=== PATIENT | female | born 1990 | race Caucasian/White ===

== ENCOUNTER 2017-08-02 17:00 | Inpatient (IN) | payer BC, OTHER ==
[2017-08-02] MEDS ORDERED: Sodium Chloride 0.9% 10 ML Syringe FLUSH PRN (17:22)
[2017-08-02] MEDS ORDERED: Terbutaline 1 MG/ML SDV SUBCUT PRN (17:22)
[2017-08-02] MEDS ORDERED: Tranexamic Acid 1,000 MG in Sodium Chloride 0.9% 100 ML IV PRN (17:22)
[2017-08-02] MEDS ORDERED: Nalbuphine 10 MG/1 ML Vial IVPUSH PRN (17:22)
[2017-08-02] MEDS ORDERED: Water For Irrigation,Sterile 1,000 ML Container IRR PRN (17:22)
[2017-08-02] MEDS ORDERED: Sodium Chloride 0.9% 2.5 ML Syringe FLUSH PRN (17:22)
[2017-08-02] MEDS ORDERED: Lidocaine 1% 50 ML MDV INJECT PRN (17:22)
[2017-08-02] MEDS ORDERED: Carboprost Tromethamine 250 MCG/1 ML Amp IM PRN (17:22)
[2017-08-02] MEDS ORDERED: Misoprostol 200 MCG Tab PO PRN (17:22)
[2017-08-02] MEDS ORDERED: Methylergonovine 0.2 MG/1 ML Amp IM PRN (17:22)
[2017-08-02] MEDS ORDERED: Oxytocin/0.9 % Sodium Chloride 30 UNIT/500 ML BAG IV SCH (17:30)
[2017-08-02] MEDS: Misoprostol 25 MCG (1/4 of 100 MCG) Tab VAG PRN ×2 (18:51→23:04)
[2017-08-03] MEDS: Misoprostol 25 MCG (1/4 of 100 MCG) Tab VAG PRN ×2 (03:25→20:37)
[2017-08-03] MEDS: Lactated Ringers 1,000 ML IV SCH ×2 (08:18→17:38)
[2017-08-03] MEDS: Oxytocin/0.9 % Sodium Chloride 30 UNIT/500 ML BAG IV SCH (08:21)
[2017-08-04] MEDS: Misoprostol 25 MCG (1/4 of 100 MCG) Tab VAG PRN (01:00)
[2017-08-04] MEDS: Butorphanol 1 MG/ML SDV IVPUSH PRN ×2 (04:52→07:16)
[2017-08-04] MEDS: Oxytocin/0.9 % Sodium Chloride 30 UNIT/500 ML BAG IV SCH (05:14)
--- NOTE | 2017-08-04 07:36 | PCM.PREANE ---
Preanesthetic Assessment - Anesthesia/Transfusion/Family Hx Family History of Anesthesia Reaction: No - Review of Systems General: No Symptoms Pulmonary: No Symptoms Cardiovascular: No Symptoms Gastrointestinal: No Symptoms Neurological: No Symptoms - Physical Assessment NPO Status Date: 08/04/17 NPO Status Time: 00:01 Height: 1.57 m Weight: 86.183 kg ASA Class: 2 Mental Status: Alert & Oriented x3 Airway Class: Mallampati = 2 Dentition: Reports: Normal Dentition ROM/Head Extension: Full - Lab Values: Laboratory Last Values WBC 11.07 K/uL (4.0-11.0) H 08/02/17 18:08 RBC 4.19 M/uL (4.30-5.90) L 08/02/17 18:08 Hgb 12.6 g/dL (12.0-16.0) 08/02/17 18:08 Hct 36.6 % (36.0-46.0) 08/02/17 18:08 MCV 87.4 fL (80.0-98.0) 08/02/17 18:08 MCH 30.1 pg (27.0-32.0) 08/02/17 18:08 MCHC 34.4 g/dL (31.0-37.0) 08/02/17 18:08 RDW Std Deviation 42.7 fl (28.0-62.0) 08/02/17 18:08 RDW Coeff of Pearl 13 % (11.0-15.0) 08/02/17 18:08 Plt Count 195 K/uL (150-400) 08/02/17 18:08 MPV 11.40 fL (7.40-12.00) 08/02/17 18:08 Nucleated RBC % 0.0 /100WBC 08/02/17 18:08 Nucleated RBCs # 0 K/uL 08/02/17 18:08 POC Glucose 88 mg/dL (60-110) 08/04/17 04:23 Blood Type O POSITIVE 08/02/17 18:08 Antibody Screen NEGATIVE 08/02/17 18:08 - Allergies Allergies/Adverse Reactions: Allergies Allergy/AdvReac Type Severity Reaction Status Date / Time No Known Allergies Allergy Verified 08/02/17 17:16 - Acknowledgements Anesthesia Type Planned: Epidural Pt an Appropriate Candidate for the Planned Anesthesia: Yes Alternatives and Risks of Anesthesia Discussed w Pt/Guardian: Yes Pt/Guardian Understands and Agrees with Anesthesia Plan: Yes PreAnesthesia Questionnaire - Past Health History Medical/Surgical History: Denies Medical/Surgical History Endocrine/Metabolic History: Reports: Diabetes, Gestational - SUBSTANCE USE Smoking Status *Q: Never Smoker Second Hand Smoke Exposure: No Recreational Drug Use History: No - HOME MEDS Home Medications: Home Meds Insulin NPH Human Isophane [Novolin N] 10 units SUBCUT BEDTIME 08/02/17 [History ] Nitrofurantoin [place]/Macrocryst [Nitrofurantoin [place]-MCR] 100 mg PO BID 08/02/17 [History] PNV95/Ferrous Fumarate/FA [ Tablet] 1 tab PO DAILY 08/02/17 [History] - CURRENT (IN HOUSE) MEDS Current Meds: Current Medications Butorphanol Tartrate (Stadol) 1 mg IVPUSH Q1H PRN PRN Reason: Pain Last Admin: 08/04/17 04:52 Dose: 1 mg Carboprost Tromethamine (Hemabate Ds) 250 mcg IM ASDIRECTED PRN PRN Reason: Post Hemorrhage Lactated Ringer's (Ringers, Lactated) 1,000 mls @ 150 mls/hr IV ASDIRECTED KOLE Last Admin: 08/03/17 17:38 Dose: 150 mls/hr Oxytocin/Sodium Chloride (Oxytocin 30 Unit/500 Ml-Ns) 30 unit in 500 mls @ 999 mls/hr IV TITRATE KOLE Oxytocin/Sodium Chloride (Oxytocin 30 Unit/500 Ml-Ns) 30 unit in 500 mls @ 2 mls/hr IV TITRATE KOLE; Protocol Last Titration: 08/04/17 06:29 Dose: 8 munits/min, 8 mls/hr Tranexamic Acid 1,000 mg/ (Sodium Chloride) 110 mls @ 660 mls/hr IV ONETIME PRN PRN Reason: Bleeding Lidocaine HCl (Xylocaine 1%) 50 ml INJECT .ONCE PRN PRN Reason: Laceration repair Methylergonovine Maleate (Methergine) 0.2 mg IM ASDIRECTED PRN PRN Reason: Post Hemorrhage Misoprostol (Cytotec) 200 mcg PO .ONCE PRN PRN Reason: Post Hemorrhage Misoprostol (Cytotec) 25 mcg VAG Q4H PRN PRN Reason: Cervical Ripening Last Admin: 08/04/17 01:00 Dose: 25 mcg Nalbuphine HCl (Nubain) 10 mg IVPUSH Q1H PRN PRN Reason: Pain (severe 7-10) Sodium Chloride (Saline Flush) 10 ml FLUSH ASDIRECTED PRN PRN Reason: Keep Vein Open Sodium Chloride (Saline Flush) 2.5 ml FLUSH ASDIRECTED PRN PRN Reason: Keep Vein Open Sterile Water (Sterile Water For Irrigation) 1,000 ml IRR ASDIRECTED PRN PRN Reason: delivery Terbutaline Sulfate (Brethine) 0.25 mg SUBCUT ASDIRECTED PRN PRN Reason: Tacysystole Discontinued Medications Fentanyl/Bupivacaine HCl (Bhacvugo-Dnnjs-Bd 2 Mcg/Ml-0.125%) Confirm Administered Dose 100 mls @ as directed SUKUMAR [facility]ST[facility] ONE Stop: 08/04/17 07:15
[2017-08-04] MEDS: Lactated Ringers 1,000 ML IV SCH ×3 (07:38→19:33)
--- NOTE | 2017-08-04 07:40 | PCM.PRNOTE ---
- Free Text/Narrative Note: Anes Note Patient requests epidural for L&D. Risks and methods were discussed. Sitting Position. Sterile technique. Bet pre X 3 to lumbar area. Sterile drape applied. Level L3-L4, midline approach. Epidural space easily achieved single attempt with ease. Cath threaded 3 cm with ease. Sterile dressing applied. Test dose 3 cc 1.5 lido with epi negative. Load 10 cc pump solution in slow divided doses. Pump started at 8 cc hr with 6 cc q 20 min prn bolus. Patient reports excellent analgesia. Omid Hilton CRNA
[2017-08-04] MEDS ORDERED: Bupivacaine 0.5% 10 ML SDV ONE ×2 (14:25→19:58)
--- NOTE | 2017-08-04 14:50 | PCM.SN ---
- Free Text/Narrative Note: Called to assess patients pain. On exam of the insertion site I am unable to determine the depth of the catheter due to the medi-pore tape that is in place. I explained to the patient that I will attempt to bolus the epidural and if she does not get comfortable, that the catheter is most likely no longer in place. 0.5% Bupivacaine 10mL given over 10mins. Will re-assess in 30 minutes.
[2017-08-04] MEDS ORDERED: Acetaminophen 500 MG Tab PO ONE (18:23)
[2017-08-04] MEDS ORDERED: Acetaminophen 500 MG Tab ONE (18:34)
[2017-08-04] MEDS ORDERED: Ampicillin 2 GM AdvVial IV ONE (18:35)
[2017-08-04] MEDS ORDERED: Sodium Chloride 0.9% 100 ML ONE (18:48)
[2017-08-04] MEDS ORDERED: Oxytocin 10 Units/1 ML SDV ONE ×2 (20:25→21:02)
[2017-08-04] MEDS ORDERED: Ondansetron 4 MG/2 ML SDV ONE (20:25)
[2017-08-04] MEDS ORDERED: fentaNYL 100 MCG/2 ML SDV IVPUSH PRN (20:54)
[2017-08-04] MEDS ORDERED: Acetaminophen/oxyCODONE 325-5 MG Tab PO PRN ×3 (20:54→22:28)
[2017-08-04] MEDS ORDERED: Nalbuphine 10 MG/1 ML Vial IVPUSH PRN (20:54)
[2017-08-04] MEDS ORDERED: Carboprost Tromethamine 250 MCG/1 ML Amp ONE (21:01)
[2017-08-04] MEDS ORDERED: Morphine PF 1 MG/ML Amp ONE (21:05)
[2017-08-04] MEDS ORDERED: fentaNYL 100 MCG/2 ML SDV ONE ×2 (21:11→21:13)
[2017-08-04] MEDS ORDERED: Propofol 200 MG/20 ML SDV ONE (21:18)
--- NOTE | 2017-08-04 22:21 | PCM.POSTAN ---
POST ANESTHESIA ASSESSMENT - MENTAL STATUS Mental Status: Alert, Oriented - RESPIRATORY Respiratory Status: Respiratory Rate WNL, Airway Patent, O2 Saturation Stable - CARDIOVASCULAR CV Status: Pulse Rate WNL, Blood Pressure Stable - GASTROINTESTINAL GI Status: No Symptoms - POST OP HYDRATION Hydration Status: Adequate & Stable
[2017-08-04] MEDS ORDERED: Bisacodyl 10 MG Supp RECTAL PRN (22:28)
[2017-08-04] MEDS ORDERED: Ondansetron 4 MG/2 ML SDV IVPUSH PRN (22:28)
[2017-08-04] MEDS ORDERED: Lanolin 100% Cream 7 GM Tube TOP PRN (22:28)
[2017-08-04] MEDS ORDERED: diphenhydrAMINE 50 MG/ML SDV IVPUSH PRN (22:28)
[2017-08-04] MEDS ORDERED: Ketorolac 30 MG/ML SDV ONE (22:29)
[2017-08-04] MEDS: Ketorolac 30 MG/ML SDV IVPUSH SCH (22:30)
[2017-08-04] MEDS ORDERED: Lactated Ringers 1,000 ML IV SCH (22:30)
--- NOTE | 2017-08-04 22:42 | PCM.OPNOTE ---
- General Post-Op/Procedure Note Date of Surgery/Procedure: 08/04/17 Operative Procedure(s): Primary Lower transverse Cesearean section Findings: Live male delivered at 2050 , 8/9 , Weight : 3470g , Thick meconium noted , 3VC EBL : 900 Pre Op Diagnosis: 27 yo @ 39w , GDM2. Persistent Cat 2FHT. Chorioamnionitis Post-Op Diagnosis: None Anesthesia Technique: Epidural Primary Surgeon: Citlalli Le Secondary Surgeon: Demetris Gallegos Pathology: Placenta Fluid Replacement, Intraop: 2,000 Output, Urine Amount: 30 EBL in mLs: 900 Complications: None Condition: Good
[2017-08-04 23:21] LABS: CHLORIDE,CL 107 mmol/L (98-107); SODIUM,NA 139 mmol/L (136-145)
[2017-08-04] MEDS: Clindamycin Phosphate in D5W 900 MG in Premix Bag 1 BAG IV SCH ×2 (23:45)
[2017-08-05] MEDS: Ampicillin 2 GM in Sodium Chloride 0.9% 100 ML IV SCH ×5 (02:17→20:41)
[2017-08-05] MEDS: Ketorolac 30 MG/ML SDV IVPUSH SCH ×4 (04:31→22:50)
[2017-08-05] MEDS ORDERED: Ampicillin 2 GM in Sodium Chloride 0.9% 100 ML IV SCH (07:41)
--- NOTE | 2017-08-05 07:45 | OR ---
SURGEON: ELICEO BARNARD PREOPERATIVE DIAGNOSES: 1. A 27-year-old G1, P0, 39 weeks and 1 day, undergoing induction of labor for gestational diabetes on insulin. 2. Category 2 heart tracing. 3. Chorioamnionitis. 4. Gestational hypertension. POSTOPERATIVE DIAGNOSES: 1. A 27-year-old G1, P0, 39 weeks and 1 day, undergoing induction of labor for gestational diabetes on insulin. 2. Category 2 heart tracing. 3. Chorioamnionitis. 4. Gestational hypertension. PROCEDURE: Primary low transverse section. ESTIMATED BLOOD LOSS: 900. IV FLUID: 2000. URINE OUTPUT: 30. FINDING: A live male delivered at 2016 hours. scores was 8 and 9. Weight was 3470 g. Thick meconium noted. Three-vessel cord also noted. BRIEF HISTORY: The patient is a 27-year-old G1, P0, at 39 weeks and 1 day, was undergoing induction of labor since two days ago. The patient received 3 doses of Cytotec, had minimal cervical change, was given opportunity to rest and Pitocin was started, was given about 2 hours and there was no significant change. Pitocin was discontinued and Cytotec was given X 2 doses , after which Pitocin was restarted. At this point,she made change to 2cm. AROM was performed and Pitocin was titrated . Eventually, the patient became 6 cm. IUPC was placed. The patient during the labor course was noted to have recurrent late decelerations. She was placed in left lateral position. Oxygen was given. Bolus was given. heart tracing was in and out of Cat 2FHT. Tracing reverts to cat 2 when pitocin is increased. . The patient also had episodes of prolonged heart deceleration. Due to recurrent late decelerations which was not responding to resuscitative measures, the patient was counseled for , at this time, she was 8, 60, 0. She also was 8 cm for about 2 hours. The patient had chorioamnionitis with temperature of 103.0. The patient was then given IV antibiotics, ampicillin and gentamicin. PROCEDURE IN DETAIL: The patient was taken to the operating room, where the epidural anesthesia was topped up. The patient was placed in dorsal supine position with leftward tilt. A Pfannenstiel skin incision was made with a scalpel and carried down to the fascia with the Bovie. The fascia was incised and extended laterally. The Jordi clamp was used to grasp the superior fascia, which was dissected of the rectus muscle. Same was done to the inferior fascia, which was dissected of the rectus muscle. The rectus muscle was in the midline down to the level of the pubic symphysis. The abdomen was entered in bluntly to expose the bladder reflection. The Matthew O retractor was placed in and it was ensured that there was no bowel entrapment. Then, the lower uterine segment was visualized. The bladder flap was created. Then a uterine incision was made which was extended upward laterally manually. The fetus was found in cephalic position was brought to the level of the incision. Then fundal pressure was applied. The was delivered and handed over to the awaiting clinical nursing coordinator. Cord gases were obtained. The placenta was delivered via controlled cord traction. The uterus was cleaned with moist laparotomy sponges. The uterus was closed in 2 layers one with 0 Vicryl, second one with 0 Monocryl with imbricating layer. Hemostasis was noted. The gutters were cleaned. The peritoneal was sutured and the rectus muscle was sutured with mattress sutures. The fascia was also closed with 0 Vicryl. Then the Subcutaneous fat was closed. The skin was closed with 4-0 Monocryl on a Lusi needle. Hemostasis was noted after the procedure. All instrument and pad count were correct x2. JUAN WILHELM /[id number] DARNELL
[2017-08-05] MEDS: Clindamycin Phosphate in D5W 900 MG in Premix Bag 1 BAG IV SCH ×6 (07:48→22:55)
--- NOTE | 2017-08-05 08:28 | PCM.PNPP ---
<Fidelia Esqueda - Last Filed: 08/05/17 08:35> - General Info Date of Service: 08/05/17 Admission Dx/Problem (Free Text): 39/1 IOL for GDM on insulin, category 2 FHT, chorioamnionitis, and gestational HTN that went to . Subjective Update: Patient is doing well this morning. . Lochia - WNL. Pain is tolerable with medications. Tolerating food with no n/v. Guzman catheter in place. No bowel movement since surgery. SCD's are on. Will be given an ICS. Anticipate discharge tomorrow. Functional Status: Reports: Pain Controlled, Tolerating Diet. Denies: Ambulating, Urinating - Review of Systems General: Denies: Fever, Chills HEENT: Denies: Headaches Pulmonary: Denies: Shortness of Breath, Pleuritic Chest Pain Cardiovascular: Denies: Chest Pain, Palpitations, Lightheadedness Gastrointestinal: Denies: Abdominal Pain, Nausea, Vomiting - General Info Date of Service: 08/05/17 - Patient Data Vital Signs - Most Recent: Last Vital Signs Temp 36.3 C 08/05/17 07:33 Pulse 90 08/05/17 07:33 Resp 20 08/05/17 07:33 BP 131/70 08/05/17 07:33 Pulse Ox 97 08/05/17 07:33 Weight - Most Recent: 86.183 kg I&O - Last 24 Hours: Intake & Output 08/04/17 08/05/17 08/05/17 22:59 06:59 14:59 Intake Total 4400 Output Total 350 Balance 4050 Lab Results - Last 24 Hours: Laboratory Results - last 24 hr 08/04/17 08/04/17 08/04/17 Range/Units 11:45 16:21 17:55 WBC (4.0-11.0) K/uL RBC (4.30-5.90) M/uL Hgb (12.0-16.0) g/dL Hct (36.0-46.0) % MCV (80.0-98.0) fL MCH (27.0-32.0) pg MCHC (31.0-37.0) g/dL RDW Std Deviation (28.0-62.0) fl RDW Coeff of Pearl (11.0-15.0) % Plt Count (150-400) K/uL MPV (7.40-12.00) fL Neut % (Auto) (48.0-80.0) % Lymph % (Auto) (16.0-40.0) % [place] % (Auto) (0.0-15.0) % Eos % (Auto) (0.0-7.0) % Baso % (Auto) (0.0-1.5) % Neut # (Auto) (1.4-5.7) K/uL Lymph # (Auto) (0.6-2.4) K/uL [place] # (Auto) (0.0-0.8) K/uL Eos # (Auto) (0.0-0.7) K/uL Baso # (Auto) (0.0-0.1) K/uL Nucleated RBC % /100WBC Nucleated RBCs # K/uL Cord ABG Base Excess Cord VBG pH (7.25-7.45) Cord VBG Base Excess (-10--2) Sodium (136-145) mmol/L Potassium (3.5-5.1) mmol/L Chloride (98-107) mmol/L Carbon Dioxide (21.0-32.0) mmol/L BUN (7.0-18.0) mg/dL Creatinine (0.6-1.0) mg/dL Est Cr Clr Drug Dosing mL/min Estimated GFR (MDRD) ml/min Glucose (74-106) mg/dL POC Glucose 119 H 89 92 (60-110) mg/dL Calcium (8.5-10.1) mg/dL Total Bilirubin (0.2-1.0) mg/dL AST (15-37) IU/L ALT (14-63) IU/L Alkaline Phosphatase (46-116) U/L Total Protein (6.4-8.2) g/dL Albumin (3.4-5.0) g/dL Globulin (2.0-3.5) g/dL Albumin/Globulin Ratio (1.3-2.8) 08/04/17 08/04/17 08/04/17 Range/Units 19:35 20:50 20:50 WBC (4.0-11.0) K/uL RBC (4.30-5.90) M/uL Hgb (12.0-16.0) g/dL Hct (36.0-46.0) % MCV (80.0-98.0) fL MCH (27.0-32.0) pg MCHC (31.0-37.0) g/dL RDW Std Deviation (28.0-62.0) fl RDW Coeff of Pearl (11.0-15.0) % Plt Count (150-400) K/uL MPV (7.40-12.00) fL Neut % (Auto) (48.0-80.0) % Lymph % (Auto) (16.0-40.0) % [place] % (Auto) (0.0-15.0) % Eos % (Auto) (0.0-7.0) % Baso % (Auto) (0.0-1.5) % Neut # (Auto) (1.4-5.7) K/uL Lymph # (Auto) (0.6-2.4) K/uL [place] # (Auto) (0.0-0.8) K/uL Eos # (Auto) (0.0-0.7) K/uL Baso # (Auto) (0.0-0.1) K/uL Nucleated RBC % /100WBC Nucleated RBCs # K/uL Cord ABG Base Excess [employer]YDIVING [employer] Cord VBG pH 7.366 (7.25-7.45) Cord VBG Base Excess -6 (-10--2) Sodium (136-145) mmol/L Potassium (3.5-5.1) mmol/L Chloride (98-107) mmol/L Carbon Dioxide (21.0-32.0) mmol/L BUN (7.0-18.0) mg/dL Creatinine 0.6 (0.6-1.0) mg/dL Est Cr Clr Drug Dosing 112.38 mL/min Estimated GFR (MDRD) > 60.0 ml/min Glucose (74-106) mg/dL POC Glucose (60-110) mg/dL Calcium (8.5-10.1) mg/dL Total Bilirubin (0.2-1.0) mg/dL AST (15-37) IU/L ALT (14-63) IU/L Alkaline Phosphatase (46-116) U/L Total Protein (6.4-8.2) g/dL Albumin (3.4-5.0) g/dL Globulin (2.0-3.5) g/dL Albumin/Globulin Ratio (1.3-2.8) 08/04/17 08/04/17 Range/Units 22:53 22:53 WBC 17.11 H (4.0-11.0) K/uL RBC 3.32 L (4.30-5.90) M/uL Hgb 10.1 L (12.0-16.0) g/dL Hct 29.1 L (36.0-46.0) % MCV 87.7 (80.0-98.0) fL MCH 30.4 (27.0-32.0) pg MCHC 34.7 (31.0-37.0) g/dL RDW Std Deviation 43.0 (28.0-62.0) fl RDW Coeff of Pearl 13 (11.0-15.0) % Plt Count 118 L (150-400) K/uL MPV 10.50 (7.40-12.00) fL Neut % (Auto) 87.0 H (48.0-80.0) % Lymph % (Auto) 6.1 L (16.0-40.0) % [place] % (Auto) 6.7 (0.0-15.0) % Eos % (Auto) 0.1 (0.0-7.0) % Baso % (Auto) 0.1 (0.0-1.5) % Neut # (Auto) 14.9 H (1.4-5.7) K/uL Lymph # (Auto) 1.0 (0.6-2.4) K/uL [place] # (Auto) 1.2 H (0.0-0.8) K/uL Eos # (Auto) 0.0 (0.0-0.7) K/uL Baso # (Auto) 0.0 (0.0-0.1) K/uL Nucleated RBC % 0.1 /100WBC Nucleated RBCs # 0 K/uL Cord ABG Base Excess Cord VBG pH (7.25-7.45) Cord VBG Base Excess (-10--2) Sodium 139 (136-145) mmol/L Potassium 3.4 L (3.5-5.1) mmol/L Chloride 107 (98-107) mmol/L Carbon Dioxide 19.8 L (21.0-32.0) mmol/L BUN 7 (7.0-18.0) mg/dL Creatinine 0.7 (0.6-1.0) mg/dL Est Cr Clr Drug Dosing 96.32 mL/min Estimated GFR (MDRD) > 60.0 ml/min Glucose 95 (74-106) mg/dL POC Glucose (60-110) mg/dL Calcium 7.9 L (8.5-10.1) mg/dL Total Bilirubin 0.3 (0.2-1.0) mg/dL AST 16 (15-37) IU/L ALT 7 L (14-63) IU/L Alkaline Phosphatase 119 H (46-116) U/L Total Protein 4.7 L (6.4-8.2) g/dL Albumin 1.7 L (3.4-5.0) g/dL Globulin 3.0 (2.0-3.5) g/dL Albumin/Globulin Ratio 0.6 L (1.3-2.8) Med Orders - Current: Current Medications Bisacodyl (Dulcolax) 10 mg RECTAL .ONCE PRN PRN Reason: Constipation Diphenhydramine HCl (Benadryl) 25 mg IVPUSH Q6H PRN PRN Reason: Itching or Nausea Docusate Sodium (Colace) 100 mg PO BID [facility] Emollient Ointment (Lansinoh Hpa) 0 gm TOP ASDIRECTED PRN PRN Reason: Sore Nipples Fentanyl (Sublimaze) 50 mcg IVPUSH Q5M PRN PRN Reason: Pain (severe 7-10) Stop: 08/05/17 20:55 Lactated Ringer's (Ringers, Lactated) 1,000 mls @ 150 mls/hr IV ASDIRECTED [facility] Last Admin: 08/04/17 19:33 Dose: 150 mls/hr Oxytocin/Sodium Chloride (Oxytocin 30 Unit/500 Ml-Ns) 30 unit in 500 mls @ 999 mls/hr IV TITRATE [facility] Oxytocin/Sodium Chloride (Oxytocin 30 Unit/500 Ml-Ns) 30 unit in 500 mls @ 2 mls/hr IV TITRATE [facility]; Protocol Last Titration: 08/04/17 16:43 Dose: 14 munits/min, 14 mls/hr Tranexamic Acid 1,000 mg/ (Sodium Chloride) 110 mls @ 660 mls/hr IV ONETIME PRN PRN Reason: Bleeding Lactated Ringer's (Ringers, Lactated) 1,000 mls @ 125 mls/hr IV ASDIRECTED [facility] Last Admin: 08/05/17 05:59 Dose: 125 mls/hr Clindamycin Phosphate 900 mg/ (Premix) 50 mls @ 100 mls/hr IV Q8H [facility] Last Admin: 08/05/17 07:48 Dose: 100 mls/hr Gentamicin Sulfate 100 mg/ (Sodium Chloride) 52.5 mls @ 100 mls/hr IV Q8H [facility] Ampicillin Sodium 2 gm/ Sodium (Chloride) 100 mls @ 200 mls/hr IV Q6H [facility] Ibuprofen (Motrin) 800 mg PO Q8H PRN PRN Reason: mild pain or fever Ketorolac Tromethamine (Toradol) 30 mg IVPUSH Q6H [facility] Stop: 08/05/17 22:31 Last Admin: 08/05/17 04:31 Dose: 30 mg Lidocaine HCl (Xylocaine 1%) 50 ml INJECT .ONCE PRN PRN Reason: Laceration repair Methylergonovine Maleate (Methergine) 0.2 mg IM ASDIRECTED PRN PRN Reason: Post Hemorrhage Misoprostol (Cytotec) 200 mcg PO .ONCE PRN PRN Reason: Post Hemorrhage Ondansetron HCl (Zofran) 4 mg IVPUSH Q4H PRN PRN Reason: Nausea/Vomiting Oxycodone/Acetaminophen (Percocet 325-5 Mg) 1 tab PO ONETIME PRN PRN Reason: Pain (moderate 4-6) Oxycodone/Acetaminophen (Percocet 325-5 Mg) 1 tab PO Q4H PRN PRN Reason: Pain (moderate 4-6) Oxycodone/Acetaminophen (Percocet 325-5 Mg) 2 tab PO Q4H PRN PRN Reason: Pain (moderate 4-6) Sodium Chloride (Saline Flush) 10 ml FLUSH ASDIRECTED PRN PRN Reason: Keep Vein Open Sodium Chloride (Saline Flush) 2.5 ml FLUSH ASDIRECTED PRN PRN Reason: Keep Vein Open Sterile Water (Sterile Water For Irrigation) 1,000 ml IRR ASDIRECTED PRN PRN Reason: delivery Discontinued Medications Acetaminophen (Tylenol Extra Strength) 1,000 mg PO ONETIME ONE Stop: 08/04/17 18:24 Last Admin: 08/04/17 18:40 Dose: 1,000 mg Acetaminophen (Tylenol Extra Strength) Confirm Administered Dose 1,000 mg .ROUTE .STK-MED ONE Stop: 08/04/17 18:35 Ampicillin Sodium (Ampicillin) Confirm Administered Dose 2 gm IV .STK-MED ONE Stop: 08/04/17 18:36 Last Admin: 08/04/17 18:54 Dose: 2 gm Bupivacaine HCl (Sensorcaine-Mpf 0.5%) Confirm Administered Dose 10 ml .ROUTE .STK-MED ONE Stop: 08/04/17 14:26 Bupivacaine HCl (Sensorcaine-Mpf 0.5%) Confirm Administered Dose 20 ml .ROUTE .STK-MED ONE Stop: 08/04/17 19:59 Butorphanol Tartrate (Stadol) 1 mg IVPUSH Q1H PRN PRN Reason: Pain Last Admin: 08/04/17 07:16 Dose: 1 mg Carboprost Tromethamine (Hemabate Ds) 250 mcg IM ASDIRECTED PRN PRN Reason: Post Hemorrhage Carboprost Tromethamine (Hemabate Ds) Confirm Administered Dose 250 mcg .ROUTE .STK-MED ONE Stop: 08/04/17 21:02 Fentanyl (Sublimaze) Confirm Administered Dose 100 mcg .ROUTE .STK-MED ONE Stop: 08/04/17 21:12 Fentanyl (Sublimaze) Confirm Administered Dose 100 mcg .ROUTE .STK-MED ONE Stop: 08/04/17 21:14 Fentanyl/Bupivacaine HCl (Auqgcgjh-Ualkn-Zb 2 Mcg/Ml-0.125%) Confirm Administered Dose 100 mls @ as directed EP .STK-MED ONE Stop: 08/04/17 07:15 Fentanyl/Bupivacaine HCl (Pmkljqjy-Ivjfv-Ml 2 Mcg/Ml-0.125%) Confirm Administered Dose 100 mls @ as directed EP .STK-MED ONE Stop: 08/04/17 14:29 Ampicillin Sodium 2 gm/ Sodium (Chloride) 100 mls @ 200 mls/hr IV Q6H [facility] Last Admin: 08/05/17 02:18 Dose: 200 mls/hr Gentamicin Sulfate 100 mg/ (Sodium Chloride) 52.5 mls @ 100 mls/hr IV Q8H [facility] Sodium Chloride (Normal Saline) Confirm Administered Dose 100 mls @ as directed .ROUTE .STK-MED ONE Stop: 08/04/17 18:49 Gentamicin Sulfate 100 mg/ (Sodium Chloride) 102.5 mls @ 195.238 mls/hr IV Q8H [facility] Gentamicin Sulfate 100 mg/ (Sodium Chloride) 102.5 mls @ 205 mls/hr IV ONETIME ONE Stop: 08/05/17 04:29 Last Admin: 08/05/17 05:00 Dose: 205 mls/hr Ampicillin Sodium 2 gm/ Sodium (Chloride) 100 mls @ 200 mls/hr IV Q6H [facility] Ketorolac Tromethamine (Toradol) Confirm Administered Dose 30 mg .ROUTE .STK- MED ONE Stop: 08/04/17 22:30 Misoprostol (Cytotec) 25 mcg VAG Q4H PRN PRN Reason: Cervical Ripening Last Admin: 08/04/17 01:00 Dose: 25 mcg Morphine Sulfate (Duramorph Pf) Confirm Administered Dose 1 mg .ROUTE .STK-MED ONE Stop: 08/04/17 21:06 Nalbuphine HCl (Nubain) 10 mg IVPUSH Q1H PRN PRN Reason: Pain (severe 7-10) Nalbuphine HCl (Nubain) 2.5 mg IVPUSH Q3H PRN PRN Reason: Pruritis Stop: 08/05/17 20:55 Ondansetron HCl (Zofran) Confirm Administered Dose 4 mg .ROUTE .STK-MED ONE Stop: 08/04/17 20:26 Oxytocin (Pitocin) Confirm Administered Dose 20 unit .ROUTE .STK-MED ONE Stop: 08/04/17 20:26 Oxytocin (Pitocin) Confirm Administered Dose 20 unit .ROUTE .STK-MED ONE Stop: 08/04/17 21:03 Propofol (Diprivan 20 Ml) Confirm Administered Dose 200 mg .ROUTE .STK-MED ONE Stop: 08/04/17 21:19 Terbutaline Sulfate (Brethine) 0.25 mg SUBCUT ASDIRECTED PRN PRN Reason: Tacysystole - Interaction Infant Disposition, : in Room with Family Infant Interaction: Holding Infant Feeding: Attempted ; Nursed Fair/Poor Support Person: Significant Other - Recovery Exam Fundal Tone: Firm (per nusing) Fundal Level: At Umbilicus (per nursing) Fundal Placement: Midline (per nursing) Lochia Amount: Scant Lochia Color: Rubra/Red Episiotomy/Laceration: None Bladder Status: Indwelling Catheter in Place Urinary Elimination: Indwelling Catheter - Exam General: Alert, Oriented, No Acute Distress Lungs: Clear to Auscultation, Normal Respiratory Effort Cardiovascular: Regular Rate, Regular Rhythm GI/Abdominal Exam: Soft, Non-Tender Extremities: No Pedal Edema Skin: Warm, Dry Psy/Mental Status: Alert - Problem List & Annotations (1) delivery delivered SNOMED Code(s): 652785083 Code(s): O82 - ENCOUNTER FOR DELIVERY WITHOUT INDICATION Status: Acute Current Visit: Yes - Assessment Assessment:: 39/1 IOL for GDM on insulin, category 2 FHT, chorioamnionitis, gestational HTN, that went to . POD #1. Stable. - Plan Plan:: Routine post- and post-op cares. Continue IVF & antibiotics. Monitor temperature and blood pressures. Glucose this morning was normal. <Hope Azar - Last Filed: 08/05/17 08:41> - Patient Data Vital Signs - Most Recent: Last Vital Signs Temp 36.3 C 08/05/17 07:33 Pulse 90 08/05/17 07:33 Resp 20 08/05/17 07:33 BP 131/70 08/05/17 07:33 Pulse Ox 97 08/05/17 07:33 I&O - Last 24 Hours: Intake & Output 08/04/17 08/05/17 08/05/17 22:59 06:59 14:59 Intake Total 4400 Output Total 350 Balance 4050 Lab Results - Last 24 Hours: Laboratory Results - last 24 hr 08/04/17 08/04/17 08/04/17 Range/Units 11:45 16:21 17:55 WBC (4.0-11.0) K/uL RBC (4.30-5.90) M/uL Hgb (12.0-16.0) g/dL Hct (36.0-46.0) % MCV (80.0-98.0) fL MCH (27.0-32.0) pg MCHC (31.0-37.0) g/dL RDW Std Deviation (28.0-62.0) fl RDW Coeff of Pearl (11.0-15.0) % Plt Count (150-400) K/uL MPV (7.40-12.00) fL Neut % (Auto) (48.0-80.0) % Lymph % (Auto) (16.0-40.0) % [place] % (Auto) (0.0-15.0) % Eos % (Auto) (0.0-7.0) % Baso % (Auto) (0.0-1.5) % Neut # (Auto) (1.4-5.7) K/uL Lymph # (Auto) (0.6-2.4) K/uL [place] # (Auto) (0.0-0.8) K/uL Eos # (Auto) (0.0-0.7) K/uL Baso # (Auto) (0.0-0.1) K/uL Nucleated RBC % /100WBC Nucleated RBCs # K/uL Cord ABG Base Excess Cord VBG pH (7.25-7.45) Cord VBG Base Excess (-10--2) Sodium (136-145) mmol/L Potassium (3.5-5.1) mmol/L Chloride (98-107) mmol/L Carbon Dioxide (21.0-32.0) mmol/L BUN (7.0-18.0) mg/dL Creatinine (0.6-1.0) mg/dL Est Cr Clr Drug Dosing mL/min Estimated GFR (MDRD) ml/min Glucose (74-106) mg/dL POC Glucose 119 H 89 92 (60-110) mg/dL Calcium (8.5-10.1) mg/dL Total Bilirubin (0.2-1.0) mg/dL AST (15-37) IU/L ALT (14-63) IU/L Alkaline Phosphatase (46-116) U/L Total Protein (6.4-8.2) g/dL Albumin (3.4-5.0) g/dL Globulin (2.0-3.5) g/dL Albumin/Globulin Ratio (1.3-2.8) 08/04/17 08/04/17 08/04/17 Range/Units 19:35 20:50 20:50 WBC (4.0-11.0) K/uL RBC (4.30-5.90) M/uL Hgb (12.0-16.0) g/dL Hct (36.0-46.0) % MCV (80.0-98.0) fL MCH (27.0-32.0) pg MCHC (31.0-37.0) g/dL RDW Std Deviation (28.0-62.0) fl RDW Coeff of Pearl (11.0-15.0) % Plt Count (150-400) K/uL MPV (7.40-12.00) fL Neut % (Auto) (48.0-80.0) % Lymph % (Auto) (16.0-40.0) % [place] % (Auto) (0.0-15.0) % Eos % (Auto) (0.0-7.0) % Baso % (Auto) (0.0-1.5) % Neut # (Auto) (1.4-5.7) K/uL Lymph # (Auto) (0.6-2.4) K/uL [place] # (Auto) (0.0-0.8) K/uL Eos # (Auto) (0.0-0.7) K/uL Baso # (Auto) (0.0-0.1) K/uL Nucleated RBC % /100WBC Nucleated RBCs # K/uL Cord ABG Base Excess SKYDIVING [employer] Cord VBG pH 7.366 (7.25-7.45) Cord VBG Base Excess -6 (-10--2) Sodium (136-145) mmol/L Potassium (3.5-5.1) mmol/L Chloride (98-107) mmol/L Carbon Dioxide (21.0-32.0) mmol/L BUN (7.0-18.0) mg/dL Creatinine 0.6 (0.6-1.0) mg/dL Est Cr Clr Drug Dosing 112.38 mL/min Estimated GFR (MDRD) > 60.0 ml/min Glucose (74-106) mg/dL POC Glucose (60-110) mg/dL Calcium (8.5-10.1) mg/dL Total Bilirubin (0.2-1.0) mg/dL AST (15-37) IU/L ALT (14-63) IU/L Alkaline Phosphatase (46-116) U/L Total Protein (6.4-8.2) g/dL Albumin (3.4-5.0) g/dL Globulin (2.0-3.5) g/dL Albumin/Globulin Ratio (1.3-2.8) 08/04/17 08/04/17 Range/Units 22:53 22:53 WBC 17.11 H (4.0-11.0) K/uL RBC 3.32 L (4.30-5.90) M/uL Hgb 10.1 L (12.0-16.0) g/dL Hct 29.1 L (36.0-46.0) % MCV 87.7 (80.0-98.0) fL MCH 30.4 (27.0-32.0) pg MCHC 34.7 (31.0-37.0) g/dL RDW Std Deviation 43.0 (28.0-62.0) fl RDW Coeff of Pearl 13 (11.0-15.0) % Plt Count 118 L (150-400) K/uL MPV 10.50 (7.40-12.00) fL Neut % (Auto) 87.0 H (48.0-80.0) % Lymph % (Auto) 6.1 L (16.0-40.0) % [place] % (Auto) 6.7 (0.0-15.0) % Eos % (Auto) 0.1 (0.0-7.0) % Baso % (Auto) 0.1 (0.0-1.5) % Neut # (Auto) 14.9 H (1.4-5.7) K/uL Lymph # (Auto) 1.0 (0.6-2.4) K/uL [place] # (Auto) 1.2 H (0.0-0.8) K/uL Eos # (Auto) 0.0 (0.0-0.7) K/uL Baso # (Auto) 0.0 (0.0-0.1) K/uL Nucleated RBC % 0.1 /100WBC Nucleated RBCs # 0 K/uL Cord ABG Base Excess Cord VBG pH (7.25-7.45) Cord VBG Base Excess (-10--2) Sodium 139 (136-145) mmol/L Potassium 3.4 L (3.5-5.1) mmol/L Chloride 107 (98-107) mmol/L Carbon Dioxide 19.8 L (21.0-32.0) mmol/L BUN 7 (7.0-18.0) mg/dL Creatinine 0.7 (0.6-1.0) mg/dL Est Cr Clr Drug Dosing 96.32 mL/min Estimated GFR (MDRD) > 60.0 ml/min Glucose 95 (74-106) mg/dL POC Glucose (60-110) mg/dL Calcium 7.9 L (8.5-10.1) mg/dL Total Bilirubin 0.3 (0.2-1.0) mg/dL AST 16 (15-37) IU/L ALT 7 L (14-63) IU/L Alkaline Phosphatase 119 H (46-116) U/L Total Protein 4.7 L (6.4-8.2) g/dL Albumin 1.7 L (3.4-5.0) g/dL Globulin 3.0 (2.0-3.5) g/dL Albumin/Globulin Ratio 0.6 L (1.3-2.8) Med Orders - Current: Current Medications Bisacodyl (Dulcolax) 10 mg RECTAL .ONCE PRN PRN Reason: Constipation Diphenhydramine HCl (Benadryl) 25 mg IVPUSH Q6H PRN PRN Reason: Itching or Nausea Docusate Sodium (Colace) 100 mg PO BID [facility] Emollient Ointment (Lansinoh Hpa) 0 gm TOP ASDIRECTED PRN PRN Reason: Sore Nipples Fentanyl (Sublimaze) 50 mcg IVPUSH Q5M PRN PRN Reason: Pain (severe 7-10) Stop: 08/05/17 20:55 Lactated Ringer's (Ringers, Lactated) 1,000 mls @ 150 mls/hr IV ASDIRECTED [facility] Last Admin: 08/04/17 19:33 Dose: 150 mls/hr Oxytocin/Sodium Chloride (Oxytocin 30 Unit/500 Ml-Ns) 30 unit in 500 mls @ 999 mls/hr IV TITRATE [facility] Oxytocin/Sodium Chloride (Oxytocin 30 Unit/500 Ml-Ns) 30 unit in 500 mls @ 2 mls/hr IV TITRATE [facility]; Protocol Last Titration: 08/04/17 16:43 Dose: 14 munits/min, 14 mls/hr Tranexamic Acid 1,000 mg/ (Sodium Chloride) 110 mls @ 660 mls/hr IV ONETIME PRN PRN Reason: Bleeding Lactated Ringer's (Ringers, Lactated) 1,000 mls @ 125 mls/hr IV ASDIRECTED [facility] Last Admin: 08/05/17 05:59 Dose: 125 mls/hr Clindamycin Phosphate 900 mg/ (Premix) 50 mls @ 100 mls/hr IV Q8H [facility] Last Admin: 08/05/17 07:48 Dose: 100 mls/hr Gentamicin Sulfate 100 mg/ (Sodium Chloride) 52.5 mls @ 100 mls/hr IV Q8H [facility] Ampicillin Sodium 2 gm/ Sodium (Chloride) 100 mls @ 200 mls/hr IV Q6H [facility] Last Admin: 08/05/17 08:37 Dose: 200 mls/hr Ibuprofen (Motrin) 800 mg PO Q8H PRN PRN Reason: mild pain or fever Ketorolac Tromethamine (Toradol) 30 mg IVPUSH Q6H [facility] Stop: 08/05/17 22:31 Last Admin: 08/05/17 04:31 Dose: 30 mg Lidocaine HCl (Xylocaine 1%) 50 ml INJECT .ONCE PRN PRN Reason: Laceration repair Methylergonovine Maleate (Methergine) 0.2 mg IM ASDIRECTED PRN PRN Reason: Post Hemorrhage Misoprostol (Cytotec) 200 mcg PO .ONCE PRN PRN Reason: Post Hemorrhage Ondansetron HCl (Zofran) 4 mg IVPUSH Q4H PRN PRN Reason: Nausea/Vomiting Oxycodone/Acetaminophen (Percocet 325-5 Mg) 1 tab PO ONETIME PRN PRN Reason: Pain (moderate 4-6) Oxycodone/Acetaminophen (Percocet 325-5 Mg) 1 tab PO Q4H PRN PRN Reason: Pain (moderate 4-6) Oxycodone/Acetaminophen (Percocet 325-5 Mg) 2 tab PO Q4H PRN PRN Reason: Pain (moderate 4-6) Sodium Chloride (Saline Flush) 10 ml FLUSH ASDIRECTED PRN PRN Reason: Keep Vein Open Sodium Chloride (Saline Flush) 2.5 ml FLUSH ASDIRECTED PRN PRN Reason: Keep Vein Open Sterile Water (Sterile Water For Irrigation) 1,000 ml IRR ASDIRECTED PRN PRN Reason: delivery Discontinued Medications Acetaminophen (Tylenol Extra Strength) 1,000 mg PO ONETIME ONE Stop: 08/04/17 18:24 Last Admin: 08/04/17 18:40 Dose: 1,000 mg Acetaminophen (Tylenol Extra Strength) Confirm Administered Dose 1,000 mg .ROUTE .STK-MED ONE Stop: 08/04/17 18:35 Ampicillin Sodium (Ampicillin) Confirm Administered Dose 2 gm IV .STK-MED ONE Stop: 08/04/17 18:36 Last Admin: 08/04/17 18:54 Dose: 2 gm Bupivacaine HCl (Sensorcaine-Mpf 0.5%) Confirm Administered Dose 10 ml .ROUTE .STK-MED ONE Stop: 08/04/17 14:26 Bupivacaine HCl (Sensorcaine-Mpf 0.5%) Confirm Administered Dose 20 ml .ROUTE .STK-MED ONE Stop: 08/04/17 19:59 Butorphanol Tartrate (Stadol) 1 mg IVPUSH Q1H PRN PRN Reason: Pain Last Admin: 08/04/17 07:16 Dose: 1 mg Carboprost Tromethamine (Hemabate Ds) 250 mcg IM ASDIRECTED PRN PRN Reason: Post Hemorrhage Carboprost Tromethamine (Hemabate Ds) Confirm Administered Dose 250 mcg .ROUTE .STK-MED ONE Stop: 08/04/17 21:02 Fentanyl (Sublimaze) Confirm Administered Dose 100 mcg .ROUTE .STK-MED ONE Stop: 08/04/17 21:12 Fentanyl (Sublimaze) Confirm Administered Dose 100 mcg .ROUTE .STK-MED ONE Stop: 08/04/17 21:14 Fentanyl/Bupivacaine HCl (Xxtjynsa-Jyolq-Oh 2 Mcg/Ml-0.125%) Confirm Administered Dose 100 mls @ as directed EP .STK-MED ONE Stop: 08/04/17 07:15 Fentanyl/Bupivacaine HCl (Tslpznqs-Acnlm-Eo 2 Mcg/Ml-0.125%) Confirm Administered Dose 100 mls @ as directed EP .STK-MED ONE Stop: 08/04/17 14:29 Ampicillin Sodium 2 gm/ Sodium (Chloride) 100 mls @ 200 mls/hr IV Q6H [facility] Last Admin: 08/05/17 02:18 Dose: 200 mls/hr Gentamicin Sulfate 100 mg/ (Sodium Chloride) 52.5 mls @ 100 mls/hr IV Q8H [facility] Sodium Chloride (Normal Saline) Confirm Administered Dose 100 mls @ as directed .ROUTE .STK-MED ONE Stop: 08/04/17 18:49 Gentamicin Sulfate 100 mg/ (Sodium Chloride) 102.5 mls @ 195.238 mls/hr IV Q8H [facility] Gentamicin Sulfate 100 mg/ (Sodium Chloride) 102.5 mls @ 205 mls/hr IV ONETIME ONE Stop: 08/05/17 04:29 Last Admin: 08/05/17 05:00 Dose: 205 mls/hr Ampicillin Sodium 2 gm/ Sodium (Chloride) 100 mls @ 200 mls/hr IV Q6H [facility] Ketorolac Tromethamine (Toradol) Confirm Administered Dose 30 mg .ROUTE .STK- MED ONE Stop: 08/04/17 22:30 Misoprostol (Cytotec) 25 mcg VAG Q4H PRN PRN Reason: Cervical Ripening Last Admin: 08/04/17 01:00 Dose: 25 mcg Morphine Sulfate (Duramorph Pf) Confirm Administered Dose 1 mg .ROUTE .STK-MED ONE Stop: 08/04/17 21:06 Nalbuphine HCl (Nubain) 10 mg IVPUSH Q1H PRN PRN Reason: Pain (severe 7-10) Nalbuphine HCl (Nubain) 2.5 mg IVPUSH Q3H PRN PRN Reason: Pruritis Stop: 08/05/17 20:55 Ondansetron HCl (Zofran) Confirm Administered Dose 4 mg .ROUTE .STK-MED ONE Stop: 08/04/17 20:26 Oxytocin (Pitocin) Confirm Administered Dose 20 unit .ROUTE .STK-MED ONE Stop: 08/04/17 20:26 Oxytocin (Pitocin) Confirm Administered Dose 20 unit .ROUTE .STK-MED ONE Stop: 08/04/17 21:03 Propofol (Diprivan 20 Ml) Confirm Administered Dose 200 mg .ROUTE .STK-MED ONE Stop: 08/04/17 21:19 Terbutaline Sulfate (Brethine) 0.25 mg SUBCUT ASDIRECTED PRN PRN Reason: Tacysystole - Problem List & Annotations (1) Gestational diabetes mellitus SNOMED Code(s): 29809921 Code(s): O24.419 - GESTATIONAL DIABETES MELLITUS IN , UNSP CONTROL Status: Acute Current Visit: Yes Qualifiers: Gestational diabetes mellitus control: insulin-controlled (2) Chorioamnionitis, delivered, current hospitalization SNOMED Code(s): 51969738 Code(s): O41.1290 - CHORIOAMNIONITIS, UNSP TRIMESTER, NOT APPLICABLE OR UNSP Status: Acute Current Visit: Yes (3) heart deceleration SNOMED Code(s): 706079383 Code(s): [id number] - Status: Acute Current Visit: Yes (4) delivery delivered SNOMED Code(s): 717982630 Code(s): O82 - ENCOUNTER FOR DELIVERY WITHOUT INDICATION Status: Acute Current Visit: Yes - Problem List Review Problem List Initiated/Reviewed/Updated: Yes - My Orders Last 24 Hours: My Active Orders 08/05/17 Breakfast Regular Diet [DIET] - Assessment Assessment:: patient was seen and examined by me, afebrile since delivery, continue antibiotics until 24 hours . Continue postop care. Glucose reading normal, recheck 2 hour GTT at 6 weeks.
[2017-08-05] MEDS: Docusate Sodium 100 MG Cap PO SCH ×2 (10:01→20:40)
[2017-08-06] MEDS ORDERED: Ibuprofen 800 MG Tab PO PRN (04:30)
--- NOTE | 2017-08-06 06:08 | PCM48HPAN ---
Post Anesthesia Note - EVALUATION WITHIN 48HRS OF ANESTHETIC Vital Signs in Normal Range: Yes Patient Participated in Evaluation: Yes Respiratory Function Stable: Yes Airway Patent: Yes Cardiovascular Function Stable: Yes Hydration Status Stable: Yes Pain Control Satisfactory: Yes Nausea and Vomiting Control Satisfactory: Yes Mental Status Recovered: Yes Resp Rate: 18 Temperature: 103.0 C
--- NOTE | 2017-08-06 06:46 | PCM.PNPP ---
<Fidelia Esqueda - Last Filed: 08/06/17 06:36> - General Info Date of Service: 08/06/17 Admission Dx/Problem (Free Text): 39/1 IOL for GDM on insulin, category 2 FHT, chorioamnionitis, and gestational HTN that went to . Subjective Update: Patient is doing well this morning. . Lochia - WNL. Pain is tolerable with medications. Tolerating food with no n/v. Urinating. No bowel movement since surgery, but flatus is present. Ambulating. Anticipate discharge today. Functional Status: Reports: Pain Controlled, Tolerating Diet, Ambulating, Urinating - Review of Systems General: Denies: Fever, Chills HEENT: Denies: Headaches Pulmonary: Denies: Shortness of Breath, Pleuritic Chest Pain Cardiovascular: Denies: Chest Pain, Palpitations, Lightheadedness Gastrointestinal: Reports: Flatus. Denies: Nausea, Vomiting - General Info Date of Service: 08/06/17 - Patient Data Vital Signs - Most Recent: Last Vital Signs Temp 103.0 C H 08/06/17 06:08 Pulse 101 H 08/06/17 04:00 Resp 18 08/06/17 06:08 BP 112/77 08/06/17 04:00 Pulse Ox 95 08/06/17 04:00 Weight - Most Recent: 86.183 kg I&O - Last 24 Hours: Intake & Output 08/05/17 08/05/17 08/06/17 14:59 22:59 06:59 Output Total 900 Balance -900 Med Orders - Current: Current Medications Bisacodyl (Dulcolax) 10 mg RECTAL .ONCE PRN PRN Reason: Constipation Diphenhydramine HCl (Benadryl) 25 mg IVPUSH Q6H PRN PRN Reason: Itching or Nausea Docusate Sodium (Colace) 100 mg PO BID [facility] Last Admin: 08/05/17 20:40 Dose: 100 mg Emollient Ointment (Lansinoh Hpa) 0 gm TOP ASDIRECTED PRN PRN Reason: Sore Nipples Lactated Ringer's (Ringers, Lactated) 1,000 mls @ 150 mls/hr IV ASDIRECTED [facility] Last Admin: 08/04/17 19:33 Dose: 150 mls/hr Oxytocin/Sodium Chloride (Oxytocin 30 Unit/500 Ml-Ns) 30 unit in 500 mls @ 999 mls/hr IV TITRATE KOLE Oxytocin/Sodium Chloride (Oxytocin 30 Unit/500 Ml-Ns) 30 unit in 500 mls @ 2 mls/hr IV TITRATE KOLE; Protocol Last Titration: 08/04/17 16:43 Dose: 14 munits/min, 14 mls/hr Tranexamic Acid 1,000 mg/ (Sodium Chloride) 110 mls @ 660 mls/hr IV ONETIME PRN PRN Reason: Bleeding Lactated Ringer's (Ringers, Lactated) 1,000 mls @ 125 mls/hr IV ASDIRECTED KOLE Last Admin: 08/05/17 05:59 Dose: 125 mls/hr Ibuprofen (Motrin) 800 mg PO Q8H PRN PRN Reason: mild pain or fever Lidocaine HCl (Xylocaine 1%) 50 ml INJECT .ONCE PRN PRN Reason: Laceration repair Methylergonovine Maleate (Methergine) 0.2 mg IM ASDIRECTED PRN PRN Reason: Post Hemorrhage Misoprostol (Cytotec) 200 mcg PO .ONCE PRN PRN Reason: Post Hemorrhage Ondansetron HCl (Zofran) 4 mg IVPUSH Q4H PRN PRN Reason: Nausea/Vomiting Oxycodone/Acetaminophen (Percocet 325-5 Mg) 1 tab PO ONETIME PRN PRN Reason: Pain (moderate 4-6) Oxycodone/Acetaminophen (Percocet 325-5 Mg) 1 tab PO Q4H PRN PRN Reason: Pain (moderate 4-6) Last Admin: 08/06/17 03:47 Dose: 1 tab Oxycodone/Acetaminophen (Percocet 325-5 Mg) 2 tab PO Q4H PRN PRN Reason: Pain (moderate 4-6) Sodium Chloride (Saline Flush) 10 ml FLUSH ASDIRECTED PRN PRN Reason: Keep Vein Open Sodium Chloride (Saline Flush) 2.5 ml FLUSH ASDIRECTED PRN PRN Reason: Keep Vein Open Sterile Water (Sterile Water For Irrigation) 1,000 ml IRR ASDIRECTED PRN PRN Reason: delivery Discontinued Medications Acetaminophen (Tylenol Extra Strength) 1,000 mg PO ONETIME ONE Stop: 08/04/17 18:24 Last Admin: 08/04/17 18:40 Dose: 1,000 mg Acetaminophen (Tylenol Extra Strength) Confirm Administered Dose 1,000 mg .ROUTE .STK-MED ONE Stop: 08/04/17 18:35 Last Admin: 08/05/17 16:30 Dose: Not Given Ampicillin Sodium (Ampicillin) Confirm Administered Dose 2 gm IV .STK-MED ONE Stop: 08/04/17 18:36 Last Admin: 08/04/17 18:54 Dose: 2 gm Bupivacaine HCl (Sensorcaine-Mpf 0.5%) Confirm Administered Dose 10 ml .ROUTE .STK-MED ONE Stop: 08/04/17 14:26 Last Admin: 08/05/17 16:30 Dose: Not Given Bupivacaine HCl (Sensorcaine-Mpf 0.5%) Confirm Administered Dose 20 ml .ROUTE .STK-MED ONE Stop: 08/04/17 19:59 Last Admin: 08/05/17 16:30 Dose: Not Given Butorphanol Tartrate (Stadol) 1 mg IVPUSH Q1H PRN PRN Reason: Pain Last Admin: 08/04/17 07:16 Dose: 1 mg Carboprost Tromethamine (Hemabate Ds) 250 mcg IM ASDIRECTED PRN PRN Reason: Post Hemorrhage Carboprost Tromethamine (Hemabate Ds) Confirm Administered Dose 250 mcg .ROUTE .STK-MED ONE Stop: 08/04/17 21:02 Fentanyl (Sublimaze) 50 mcg IVPUSH Q5M PRN PRN Reason: Pain (severe 7-10) Stop: 08/05/17 20:55 Fentanyl (Sublimaze) Confirm Administered Dose 100 mcg .ROUTE .STK-MED ONE Stop: 08/04/17 21:12 Fentanyl (Sublimaze) Confirm Administered Dose 100 mcg .ROUTE .STK-MED ONE Stop: 08/04/17 21:14 Fentanyl/Bupivacaine HCl (Dnqtiupx-Sxjed-Uw 2 Mcg/Ml-0.125%) Confirm Administered Dose 100 mls @ as directed EP .STK-MED ONE Stop: 08/04/17 07:15 Last Admin: 08/05/17 16:29 Dose: Not Given Fentanyl/Bupivacaine HCl (Mtmfnuzl-Adxwv-Yq 2 Mcg/Ml-0.125%) Confirm Administered Dose 100 mls @ as directed EP .STK-MED ONE Stop: 08/04/17 14:29 Last Admin: 08/05/17 16:30 Dose: Not Given Ampicillin Sodium 2 gm/ Sodium (Chloride) 100 mls @ 200 mls/hr IV Q6H [facility] Last Admin: 08/05/17 02:18 Dose: 200 mls/hr Gentamicin Sulfate 100 mg/ (Sodium Chloride) 52.5 mls @ 100 mls/hr IV Q8H [facility] Sodium Chloride (Normal Saline) Confirm Administered Dose 100 mls @ as directed .ROUTE .STK-MED ONE Stop: 08/04/17 18:49 Last Admin: 08/05/17 16:30 Dose: Not Given Clindamycin Phosphate 900 mg/ (Premix) 50 mls @ 100 mls/hr IV Q8H [facility] Stop: 08/05/17 23:59 Last Admin: 08/05/17 22:55 Dose: 100 mls/hr Gentamicin Sulfate 100 mg/ (Sodium Chloride) 102.5 mls @ 195.238 mls/hr IV Q8H [facility] Gentamicin Sulfate 100 mg/ (Sodium Chloride) 52.5 mls @ 100 mls/hr IV Q8H [facility] Stop: 08/05/17 23:59 Last Admin: 08/05/17 20:06 Dose: 100 mls/hr Gentamicin Sulfate 100 mg/ (Sodium Chloride) 102.5 mls @ 205 mls/hr IV ONETIME ONE Stop: 08/05/17 04:29 Last Admin: 08/05/17 05:00 Dose: 205 mls/hr Ampicillin Sodium 2 gm/ Sodium (Chloride) 100 mls @ 200 mls/hr IV Q6H [facility] Ampicillin Sodium 2 gm/ Sodium (Chloride) 100 mls @ 200 mls/hr IV Q6H [facility] Stop: 08/05/17 23:59 Last Admin: 08/05/17 20:41 Dose: 200 mls/hr Ketorolac Tromethamine (Toradol) Confirm Administered Dose 30 mg .ROUTE .STK- MED ONE Stop: 08/04/17 22:30 Last Admin: 08/05/17 19:40 Dose: Not Given Ketorolac Tromethamine (Toradol) 30 mg IVPUSH Q6H [facility] Stop: 08/05/17 22:31 Last Admin: 08/05/17 22:50 Dose: 30 mg Misoprostol (Cytotec) 25 mcg VAG Q4H PRN PRN Reason: Cervical Ripening Last Admin: 08/04/17 01:00 Dose: 25 mcg Morphine Sulfate (Duramorph Pf) Confirm Administered Dose 1 mg .ROUTE .STK-MED ONE Stop: 08/04/17 21:06 Nalbuphine HCl (Nubain) 10 mg IVPUSH Q1H PRN PRN Reason: Pain (severe 7-10) Nalbuphine HCl (Nubain) 2.5 mg IVPUSH Q3H PRN PRN Reason: Pruritis Stop: 08/05/17 20:55 Ondansetron HCl (Zofran) Confirm Administered Dose 4 mg .ROUTE .STK-MED ONE Stop: 08/04/17 20:26 Oxytocin (Pitocin) Confirm Administered Dose 20 unit .ROUTE .STK-MED ONE Stop: 08/04/17 20:26 Oxytocin (Pitocin) Confirm Administered Dose 20 unit .ROUTE .STK-MED ONE Stop: 08/04/17 21:03 Propofol (Diprivan 20 Ml) Confirm Administered Dose 200 mg .ROUTE .STK-MED ONE Stop: 08/04/17 21:19 Terbutaline Sulfate (Brethine) 0.25 mg SUBCUT ASDIRECTED PRN PRN Reason: Tacysystole - Interaction Infant Disposition, : [place] in Room with Family Infant Interaction: Holding Infant Feeding: Attempted ; Nursed Fair/Poor Support Person: Significant Other - Recovery Exam Fundal Tone: Firm Fundal Level: 3 Fingerbreadths Below Umbilicus Fundal Placement: Midline Lochia Amount: Scant Lochia Color: Rubra/Red Episiotomy/Laceration: None Bladder Status: Voiding Urinary Elimination: Voided - Exam General: Alert, Oriented, No Acute Distress Lungs: Clear to Auscultation, Normal Respiratory Effort Cardiovascular: Regular Rate, Regular Rhythm GI/Abdominal Exam: Soft, Non-Tender Extremities: Pedal Edema (Trace) Skin: Warm, Dry, Intact Wound/Incisions: Healing Well Psy/Mental Status: Alert - Problem List & Annotations (1) delivery delivered SNOMED Code(s): 937299740 Code(s): O82 - ENCOUNTER FOR DELIVERY WITHOUT INDICATION Status: Acute Current Visit: Yes - Assessment Assessment:: POD #2. Stable. Discharge today. - Plan Plan:: Continued antibiotics 24 hours after delivery, has remained fever free since delivery. Reviewed discharge instructions. Continue PNV while . Pelvic rest for 6 weeks. Take OTC ibuprofen/tylenol as needed for pain. Reviewed post- depression symptoms. Call if fever greater than 101 or bleeding through a heavy pad in an hour. Follow-up appointments at 2 and 6 weeks. Will also follow-up with blood pressure check and will recheck 2 hour GTT at 6 weeks. <Izabela Ackerman - Last Filed: 08/06/17 07:21> - Review of Systems Neurological: Denies: Dizziness, Headache Psychiatric: Reports: No Symptoms - Patient Data Vital Signs - Most Recent: Last Vital Signs Temp 103.0 C H 08/06/17 06:08 Pulse 101 H 08/06/17 04:00 Resp 18 08/06/17 06:08 BP 112/77 08/06/17 04:00 Pulse Ox 95 08/06/17 04:00 I&O - Last 24 Hours: Intake & Output 08/05/17 08/06/17 08/06/17 22:59 06:59 14:59 Output Total 900 Balance -900 Med Orders - Current: Current Medications Bisacodyl (Dulcolax) 10 mg RECTAL .ONCE PRN PRN Reason: Constipation Diphenhydramine HCl (Benadryl) 25 mg IVPUSH Q6H PRN PRN Reason: Itching or Nausea Docusate Sodium (Colace) 100 mg PO BID KOLE Last Admin: 08/05/17 20:40 Dose: 100 mg Emollient Ointment (Lansinoh Hpa) 0 gm TOP ASDIRECTED PRN PRN Reason: Sore Nipples Lactated Ringer's (Ringers, Lactated) 1,000 mls @ 150 mls/hr IV ASDIRECTED KOLE Last Admin: 08/04/17 19:33 Dose: 150 mls/hr Oxytocin/Sodium Chloride (Oxytocin 30 Unit/500 Ml-Ns) 30 unit in 500 mls @ 999 mls/hr IV TITRATE KOLE Oxytocin/Sodium Chloride (Oxytocin 30 Unit/500 Ml-Ns) 30 unit in 500 mls @ 2 mls/hr IV TITRATE KOLE; Protocol Last Titration: 08/04/17 16:43 Dose: 14 munits/min, 14 mls/hr Tranexamic Acid 1,000 mg/ (Sodium Chloride) 110 mls @ 660 mls/hr IV ONETIME PRN PRN Reason: Bleeding Lactated Ringer's (Ringers, Lactated) 1,000 mls @ 125 mls/hr IV ASDIRECTED KOLE Last Admin: 08/05/17 05:59 Dose: 125 mls/hr Ibuprofen (Motrin) 800 mg PO Q8H PRN PRN Reason: mild pain or fever Lidocaine HCl (Xylocaine 1%) 50 ml INJECT .ONCE PRN PRN Reason: Laceration repair Methylergonovine Maleate (Methergine) 0.2 mg IM ASDIRECTED PRN PRN Reason: Post Hemorrhage Misoprostol (Cytotec) 200 mcg PO .ONCE PRN PRN Reason: Post Hemorrhage Ondansetron HCl (Zofran) 4 mg IVPUSH Q4H PRN PRN Reason: Nausea/Vomiting Oxycodone/Acetaminophen (Percocet 325-5 Mg) 1 tab PO ONETIME PRN PRN Reason: Pain (moderate 4-6) Oxycodone/Acetaminophen (Percocet 325-5 Mg) 1 tab PO Q4H PRN PRN Reason: Pain (moderate 4-6) Last Admin: 08/06/17 03:47 Dose: 1 tab Oxycodone/Acetaminophen (Percocet 325-5 Mg) 2 tab PO Q4H PRN PRN Reason: Pain (moderate 4-6) Sodium Chloride (Saline Flush) 10 ml FLUSH ASDIRECTED PRN PRN Reason: Keep Vein Open Sodium Chloride (Saline Flush) 2.5 ml FLUSH ASDIRECTED PRN PRN Reason: Keep Vein Open Sterile Water (Sterile Water For Irrigation) 1,000 ml IRR ASDIRECTED PRN PRN Reason: delivery Discontinued Medications Acetaminophen (Tylenol Extra Strength) 1,000 mg PO ONETIME ONE Stop: 08/04/17 18:24 Last Admin: 08/04/17 18:40 Dose: 1,000 mg Acetaminophen (Tylenol Extra Strength) Confirm Administered Dose 1,000 mg .ROUTE .STK-MED ONE Stop: 08/04/17 18:35 Last Admin: 08/05/17 16:30 Dose: Not Given Ampicillin Sodium (Ampicillin) Confirm Administered Dose 2 gm IV .STK-MED ONE Stop: 08/04/17 18:36 Last Admin: 08/04/17 18:54 Dose: 2 gm Bupivacaine HCl (Sensorcaine-Mpf 0.5%) Confirm Administered Dose 10 ml .ROUTE .STK-MED ONE Stop: 08/04/17 14:26 Last Admin: 08/05/17 16:30 Dose: Not Given Bupivacaine HCl (Sensorcaine-Mpf 0.5%) Confirm Administered Dose 20 ml .ROUTE .STK-MED ONE Stop: 08/04/17 19:59 Last Admin: 08/05/17 16:30 Dose: Not Given Butorphanol Tartrate (Stadol) 1 mg IVPUSH Q1H PRN PRN Reason: Pain Last Admin: 08/04/17 07:16 Dose: 1 mg Carboprost Tromethamine (Hemabate Ds) 250 mcg IM ASDIRECTED PRN PRN Reason: Post Hemorrhage Carboprost Tromethamine (Hemabate Ds) Confirm Administered Dose 250 mcg .ROUTE .STK-MED ONE Stop: 08/04/17 21:02 Fentanyl (Sublimaze) 50 mcg IVPUSH Q5M PRN PRN Reason: Pain (severe 7-10) Stop: 08/05/17 20:55 Fentanyl (Sublimaze) Confirm Administered Dose 100 mcg .ROUTE .STK-MED ONE Stop: 08/04/17 21:12 Fentanyl (Sublimaze) Confirm Administered Dose 100 mcg .ROUTE .STK-MED ONE Stop: 08/04/17 21:14 Fentanyl/Bupivacaine HCl (Laynraye-Lgqng-Jo 2 Mcg/Ml-0.125%) Confirm Administered Dose 100 mls @ as directed EP .STK-MED ONE Stop: 08/04/17 07:15 Last Admin: 08/05/17 16:29 Dose: Not Given Fentanyl/Bupivacaine HCl (Khmahauq-Tpnpd-Vt 2 Mcg/Ml-0.125%) Confirm Administered Dose 100 mls @ as directed EP .STK-MED ONE Stop: 08/04/17 14:29 Last Admin: 08/05/17 16:30 Dose: Not Given Ampicillin Sodium 2 gm/ Sodium (Chloride) 100 mls @ 200 mls/hr IV Q6H [facility] Last Admin: 08/05/17 02:18 Dose: 200 mls/hr Gentamicin Sulfate 100 mg/ (Sodium Chloride) 52.5 mls @ 100 mls/hr IV Q8H [facility] Sodium Chloride (Normal Saline) Confirm Administered Dose 100 mls @ as directed .ROUTE .STK-MED ONE Stop: 08/04/17 18:49 Last Admin: 08/05/17 16:30 Dose: Not Given Clindamycin Phosphate 900 mg/ (Premix) 50 mls @ 100 mls/hr IV Q8H [facility] Stop: 08/05/17 23:59 Last Admin: 08/05/17 22:55 Dose: 100 mls/hr Gentamicin Sulfate 100 mg/ (Sodium Chloride) 102.5 mls @ 195.238 mls/hr IV Q8H [facility] Gentamicin Sulfate 100 mg/ (Sodium Chloride) 52.5 mls @ 100 mls/hr IV Q8H [facility] Stop: 08/05/17 23:59 Last Admin: 08/05/17 20:06 Dose: 100 mls/hr Gentamicin Sulfate 100 mg/ (Sodium Chloride) 102.5 mls @ 205 mls/hr IV ONETIME ONE Stop: 08/05/17 04:29 Last Admin: 08/05/17 05:00 Dose: 205 mls/hr Ampicillin Sodium 2 gm/ Sodium (Chloride) 100 mls @ 200 mls/hr IV Q6H [facility] Ampicillin Sodium 2 gm/ Sodium (Chloride) 100 mls @ 200 mls/hr IV Q6H [facility] Stop: 08/05/17 23:59 Last Admin: 08/05/17 20:41 Dose: 200 mls/hr Ketorolac Tromethamine (Toradol) Confirm Administered Dose 30 mg .ROUTE .STK- MED ONE Stop: 08/04/17 22:30 Last Admin: 08/05/17 19:40 Dose: Not Given Ketorolac Tromethamine (Toradol) 30 mg IVPUSH Q6H [facility] Stop: 08/05/17 22:31 Last Admin: 08/05/17 22:50 Dose: 30 mg Misoprostol (Cytotec) 25 mcg VAG Q4H PRN PRN Reason: Cervical Ripening Last Admin: 08/04/17 01:00 Dose: 25 mcg Morphine Sulfate (Duramorph Pf) Confirm Administered Dose 1 mg .ROUTE .STK-MED ONE Stop: 08/04/17 21:06 Nalbuphine HCl (Nubain) 10 mg IVPUSH Q1H PRN PRN Reason: Pain (severe 7-10) Nalbuphine HCl (Nubain) 2.5 mg IVPUSH Q3H PRN PRN Reason: Pruritis Stop: 08/05/17 20:55 Ondansetron HCl (Zofran) Confirm Administered Dose 4 mg .ROUTE .STK-MED ONE Stop: 08/04/17 20:26 Oxytocin (Pitocin) Confirm Administered Dose 20 unit .ROUTE .STK-MED ONE Stop: 08/04/17 20:26 Oxytocin (Pitocin) Confirm Administered Dose 20 unit .ROUTE .STK-MED ONE Stop: 08/04/17 21:03 Propofol (Diprivan 20 Ml) Confirm Administered Dose 200 mg .ROUTE .STK-MED ONE Stop: 08/04/17 21:19 Terbutaline Sulfate (Brethine) 0.25 mg SUBCUT ASDIRECTED PRN PRN Reason: Tacysystole - Exam Extremities: No: Diana's Sign Wound/Incisions: No Drainage. No: Erythema - Problem List & Annotations (1) delivery delivered SNOMED Code(s): 361979011 Code(s): O82 - ENCOUNTER FOR DELIVERY WITHOUT INDICATION Status: Acute Current Visit: Yes (2) Chorioamnionitis, delivered, current hospitalization SNOMED Code(s): 73003244 Code(s): O41.1290 - CHORIOAMNIONITIS, UNSP TRIMESTER, NOT APPLICABLE OR UNSP Status: Acute Current Visit: Yes (3) Gestational diabetes mellitus SNOMED Code(s): 66888567 Code(s): O24.419 - GESTATIONAL DIABETES MELLITUS IN , UNSP CONTROL Status: Acute Current Visit: Yes Qualifiers: Gestational diabetes mellitus control: insulin-controlled - Problem List Review Problem List Initiated/Reviewed/Updated: Yes - Plan Plan:: Patient has been afebrile since delivery. No antibiotics since 8 pm last night. Feeling well overall, she ambulates, pain is controlled, BPs remain normal range. She is very motivated to go home later today. She agrees to go into [facility] for BP check this week as lives in [place] and will call if BP greater than 140/90. Plan 75 gm GTT at PP visit and may check glucoses randomly, call if persistently greater than 130. Discharge to home this afternoon. Of note, there is a temperature of 103 degrees celcius entered into the chart by anesthesia provider this morning--this is in error and will be corrected. Patient is verified afebrile.
[2017-08-06] MEDS: Docusate Sodium 100 MG Cap PO SCH (08:33)
--- NOTE | 2017-08-06 13:29 | PCM48HPAN ---
Post Anesthesia Note - EVALUATION WITHIN 48HRS OF ANESTHETIC Vital Signs in Normal Range: Yes Patient Participated in Evaluation: Yes Respiratory Function Stable: Yes Airway Patent: Yes Resp Rate: 16
== END 2017-08-06 13:40 | disposition home or self-care (01) | DRG 765 ==
LOC: MW.OBCHECK 17:00 → MW.OB 17:22 → OBSVTOIN 08-04 20:50 → MW.OB 08-04 22:30
PROVIDERS: ADMIT Obstetrics & Gynecology; ATTEND Obstetrics & Gynecology
PROC: 10D00Z1 Extraction of Products of Conception, Low, Open Approach (ICD-10-PCS; principal; 2017-08-04)
PROC: 3E0P7VZ Introduction of Hormone into Female Reproductive, Via Natural or Artificial Opening (ICD-10-PCS; 2017-08-04)
PROC: 3E033VJ Introduction of Other Hormone into Peripheral Vein, Percutaneous Approach (ICD-10-PCS; 2017-08-04)
PROC: 10907ZC Drainage of Amniotic Fluid, Therapeutic from Products of Conception, Via Natural or Artificial Opening (ICD-10-PCS; 2017-08-04)
PROC: 10H07YZ Insertion of Other Device into Products of Conception, Via Natural or Artificial Opening (ICD-10-PCS; 2017-08-04)
DX: O24.424 Gestational diabetes mellitus in childbirth, insulin controlled (principal); O41.1230 Chorioamnionitis, third trimester, not applicable or unspecified; O76 Abnormality in fetal heart rate and rhythm complicating labor and delivery; O13.4 Gestational [pregnancy-induced] hypertension without significant proteinuria, complicating childbirth; Z3A.39 39 weeks gestation of pregnancy; Z37.0 Single live birth
CPT/HCPCS: 01961; 36415; 59025; 80053; 82565; 82803; 82962; 85025; 85027; 86850; 86900; 86901; A9270-GY; J0290; J0595; J1580; J1885; J2274; J2405; J2590; J2704; J3010; J7030; J7050; J7120